=== PATIENT | female | born 1970 | race Caucasian/White ===

== ENCOUNTER 2018-10-25 20:32 | Emergency (ER) | payer OTHER, SELFPAY ==
[2018-10-25 20:37] VITALS: BP 114/66; PULSE 76; RESP 16; TEMP 36.4; O2SAT 98
[2018-10-25] MEDS: Lactated Ringers 1,000 ML 1000 ML IV (21:32)
--- NOTE | 2018-10-25 21:35 | ED.GENADUL_ITS ---
Discharge Plan Disposition Patient Disposition: HOME Discharge Details Chief Complaint: Abd Prob Clinical Impression: Right ureteral stone, Colon wall thickening Primary Care Provider: Adenike Higgins ED Provider: Fernando Doll Home Meds and New Rx's Prescriptions: Continue estradiol 1 MG tablet 1 mg PO DAILY RF: 0 famotidine 20 MG tablet 20 mg PO BID Qty: 60 RF: 0 trazodone 50 mg Tablet 50 mg PO DAILY RF: 0 topiramate 50 mg Tablet 50 mg PO DAILY RF: 0 duloxetine 30 mg Capsule,Delayed Release(Dr/Ec) 30 mg PO DAILY RF: 0 Discharge Instructions Instructions: Renal Colic (ED) Additional Instructions: PLease follow-up with your urologist if pain persists tomorrow. Please contact your primary care physician to arrange follow-up. Be sure to discuss CT finding of focus of wall thickening and enhancement of the distal colon. We may need additional outpatient diagnostic testing Return to the ER for any worsening or new concerning symptoms. Referrals: Adenike Higgins [Primary Care Provider] - Medical Decision Making 21:00 --48-year-old female with history of prior hysterectomy and renal stones, here with right lower quadrant pain and tenderness. Concern for acute surgical pathology including acute appendicitis versus obstructed renal stone. Plan for CT abdomen and pelvis. I offered pain medication and patient declined. Patient does appear clinically dehydrated - I will give IV fluid bolus. 22:42 --patient reassessed and is remained stable. Again offered analgesia and patient declined. CT reviewed and interpreted by radiology: 4 mm ureteral calculus near the right UVJ: Focus of wall thickening and enhancement of the distal colon which can be seen with colitis or pathology. I reviewed the CT findings with the patient and provided her a copy for her records. I encouraged her to follow-up with her primary care physician and specifically noted she may need additional diagnostic testing including colonoscopy which she has never had. Patient understands importance of timely follow-up. Disposition decision was made weighing the risks and benefits of hospitalization versus outpatient treatment, the risk for further decompensation , and the patient's wishes. The patient was stable and requested discharge. Prior to discharge, my usual and customary return precautions were reviewed with the patient - this included follow-up instructions and reason to return to the emergency department if condition worsens, does not improve as expected, or other new concerns arise. Imaging Data Radiologic Study: Imaging: CT Scan Radiologist's impression: IMPRESSION: 1. There is mild right-sided hydroureter with a 4 mm ureteral calculus near the right UVJ. There is mild enhancement of the uroepithelium of the right ureter which may be reactive but should be correlated with any concern for infection. 2. Heterogeneous stool-like contents in the stomach. This may be related to ingested products but should be correlated with any concern for gastroparesis. 3. Focus of wall thickening and enhancement in the distal colon which can be seen with colitis or pathology. 4. Mild intrahepatic ductal prominence. Correlation with lab values suggested. Urinary bladder wall prominence. This can be seen with infection or under distention. Findings suggestive of constipation. Other findings as above. Dictated and Authenticated by: Xochitl March MD. HPI General Mode of arrival: ambulatory . Date/Time Provider Initiated Documentation: 10/25/18 20:40 . Limitations to Documentation: no limitations . Information obtained by: patient . HPI Narrative: 48-year-old female prior history of renal stones presents with chief complaint of right lower quadrant pain. Patient notes pain started about an hour and a half prior to arrival. Pain is moderate to severe severe and currently rated 5/10. Pain is described as an ache but intermittently sharp. Pain does not radiate. No modifiers. She has no associated fevers, nausea vomiting, diarrhea, or urinary symptoms. Her current pain does not feel like prior kidney stones. Related Data Home Medications Medication Instructions Recorded Confirmed estradiol 1 mg PO DAILY 03/15/13 10/25/18 famotidine 20 mg PO BID #60 tab 08/03/15 duloxetine 30 mg PO DAILY 10/25/18 10/25/18 topiramate 50 mg PO DAILY 10/25/18 10/25/18 trazodone 50 mg PO DAILY 10/25/18 10/25/18 Previous Rx's Medication Instructions Recorded famotidine 20 mg PO BID #60 tab 08/03/15 Allergies Allergy/AdvReac Type Severity Reaction Status Date / Time Sulfa (Sulfonamide Allergy Anaphylaxsi Unverified 10/25/18 20:41 Antibiotics) s pain pills AdvReac they make Uncoded 10/25/18 20:41 me very sick unknown names General Stated Complaint: Abd Prob CRISTINA: 3 Review of Systems Review of Systems All systems reviewed & are unremarkable except as noted in HPI and below PFSH Renal stones (Chronic) H/O: hysterectomy (Chronic) Medical History Renal stones (Chronic) H/O: hysterectomy (Chronic) Social History Smoking/Tobacco Use Status: Never Social History Smoking/Tobacco Use Status: Never Exam Const General: cooperative and no acute distress HENMT Head: normocephalic and atraumatic Mouth: moist mucous membranes Eyes Conjunctivae: normal conjunctivae Sclera: normal sclerae Neck Neck: trachea midline and supple Resp Auscultation: clear to auscultation bilaterally, no rales, no rhonchi and no wheezes Cardio Jugular venous pressure: no JVD Rate: regular rate and not tachycardic Rhythm: regular rhythm GI Palpation: soft, not firm, no guarding, no masses, not rigid and tender in the RLQ and at McBurney's point; Shaver's sign negative, obturator sign negative, psoas sign negative, with no rebound tenderness and Rovsing's sign negative Auscultation: normal bowel sounds Skin General skin exam: no rashes or lesions noted Neuro General: alert, awake, oriented x3 and tone normal Extrem General: no edema Psych Appearance: grossly normal Mental Status: mental status grossly normal Speech and Movement: speech and movement normal Course Vital Signs Temperature 36.4 C L 10/25/18 20:37 Pulse 76 10/25/18 20:37 Respiratory Rate 16 10/25/18 20:37 Blood Pressure 114/66 10/25/18 20:37 Pulse Oximetry 98 10/25/18 20:37 Temperature 36.4 C L 10/25/18 20:37 Temperature Source Temporal Artery Scan 10/25/18 20:37 Pulse 76 10/25/18 20:37 Respiratory Rate 16 10/25/18 20:37 Respiratory Effort Non-Labored 10/25/18 20:40 Blood Pressure 114/66 10/25/18 20:37 Blood Pressure Position Supine 10/25/18 20:37 Pulse Oximetry 98 10/25/18 20:37 Oxygen Delivery Method Room Air 10/25/18 20:37 Oxygen Flow Rate 0 10/25/18 20:37 Pain Level 5 10/25/18 20:49
[2018-10-25 21:36] LABS: Abs Immature Grans 0.02 k/cumm (0.0-0.09); Absolute Basophil Count 0.04 k/cumm (0.0-0.2); Absolute Eosinophil Count 0.39 k/cumm (0.0-0.7); Absolute Lymphocyte Count 2.01 k/cumm (1.2-3.4); Absolute Monocyte Count 0.37 k/cumm (0.11-0.7); Absolute Neutrophil Count 5.19 k/cumm (1.2-6.7); Basophils % 0.5; Eosinophils % 4.9; HCT 39.1 % (36.0-46.0); HGB 13.2 g/dL (12.0-15.5); Immature Grans % 0.2; Lymphocytes % 25.1; Mean Corp. HGB Concentration 33.8 g/dL (32.0-36.0); Mean Corpuscular Hemoglobin 30.3 pg (27.0-33.0); Mean Corpuscular Volume 89.7 fL (80-95); Mean Platelet Volume 9.2 fL (8.0-11.0); Monocytes % 4.6; Neutrophils % 64.7; Platelet Count 287 x1000/uL (130-400); RBC 4.36 m/cumm (4.00-5.20); RBC Distribution Width 12.5 % (11.7-14.6); White Blood Cell Count 8.02 k/cumm (4.4-10.8)
[2018-10-25 21:43] LABS: Bilirubin Negative (Negative); Blood Moderate (Negative); Clarity Sl Cloudy; Glucose Negative (Negative); Ketones Negative (Negative); Leukocyte Esterase Negative (Negative); Nitrite Negative (Negative); Specific Gravity 1.025 (1.005-1.025); Urobilinogen 0.2 EU/dL (Up TO 0.2)
[2018-10-25] MEDS: Omnipaque 350 MG/ML 100 ML BTL IJ (21:52)
--- NOTE | 2018-10-25 21:53 | DI.CT_ITS ---
SYMPTOMS/DIAGNOSIS: RIGHT LOWER QUADRANT ABDOMINAL PAIN, TENDERNESS TO PALPATION CT OF THE ABDOMEN AND PELVIS: Comparison is made with July,. Images were performed from the lung bases through the ischial tuberosities after IV and without oral contrast. The lung bases are clear. The gallbladder is contracted. There is slight focal intrahepatic biliary dilatation seen superiorly in the right lobe of the liver. The stomach contains a large amount of food. There is no small bowel dilatation. There is an increased quantity of stool seen throughout the colon. No inflammatory changes are seen. There is mild right hydronephrosis. The ureter is dilated down to the ureterovesical junction where there is a stone measuring 4 mm. A nonobstructing stone is seen at the lower pole of the left kidney. There are a few tiny nonobstructing stones in the right kidney. The urinary bladder is nearly empty. The patient is status post hysterectomy. The aorta is normal in diameter. The lung bases are clear. The heart size is normal. IMPRESSION: A 4 mm stone at the right ureterovesical junction causing mild right hydronephrosis.
[2018-10-25 22:01] LABS: ALT 30 U/L (12-78); AST 25 U/L (15-37); Albumin 3.2 g/dL (3.4-5.0); Alkaline Phosphatase 77 U/L (46-116); Anion Gap 9.7 mmol/L (3-11); BUN 21 mg/dL (7-18); Bilirubin, Total 0.2 mg/dL (0.2-1.0); CO2 25.3 mmol/L (21.0-32.0); CREATININE 0.86 mg/dL (0.55-1.02); Chloride 110 mmol/L (98-107); Glucose 97 mg/dL (70-100); Potassium 3.7 mmol/L (3.5-5.1); Sodium 145 mmol/L (136-145); Total Protein 6.2 g/dL (6.4-8.2)
[2018-10-25 22:03] LABS: Bacteria Rare HPF (Negative); Crystals Few Calcium Oxalate HPF (Negative); Epithelial Cells Moderate HPF (Negative); Other Cells Rare Renal (Negative); RBC >50 (0-2)
[2018-10-25 22:04] LABS: C & S Indicated? No; Casts Negative LPF (Negative); Mucus Trace (Negative)
--- NOTE | 2018-10-25 22:31 | DI.VRAD_ITS ---
EXAM: CT Abdomen and Pelvis With Contrast EXAM DATE/TIME: 10/25/2018 9:06 PM CLINICAL HISTORY: 48 years old, female; Pain; Abdominal pain; Localized; Right lower quadrant (rlq); Patient HX: Rlq abd pain, ttp rlq TECHNIQUE: Axial computed tomography images of the abdomen and pelvis with intravenous contrast. All CT scans at this facility use at least one of these dose optimization techniques: automated exposure control; mA and/or kV adjustment per patient size (includes targeted exams where dose is matched to clinical indication); or iterative reconstruction. Coronal and sagittal reformatted images were created and reviewed. CONTRAST: 100 ml of omni 350 administered intravenously. COMPARISON: CT ABD PELVIS WITH CONTRAST 08/03/2015 12:24 AM FINDINGS: Lower thorax: Linear atelectasis or scarring at the lung bases. Gas in the distal esophagus which can be seen with reflux. ABDOMEN: Liver: Normal. No mass. Gallbladder and bile ducts: Mild intrahepatic ductal prominence. The gallbladder is contracted with no definite gallstones. Pancreas: Normal. No ductal dilation. Spleen: Spleen within normal limits. Adrenals: Adrenal glands normal. Kidneys and ureters: There are bilateral nonobstructive renal calculi. There is a too small to characterize hypodensity in the right kidney. There is mild right-sided hydroureter with a 4 mm ureteral calculus near the right UVJ, series 5 image 71. There is mild enhancement of the uroepithelium of the ureter which may be reactive but should be correlated with any concern for infection. Stomach and bowel: The stomach demonstrates heterogeneous stool-like contents which may be related to ingested products but should be correlated with any concern for gastroparesis. Evaluation of the bowel is limited secondary to the lack of oral contrast. No evidence of bowel obstruction. There is some wall thickening and enhancement in the distal colon on series 5 image 62 which should be correlated with any concern for colitis or pathology. Stool throughout the colon which can be seen with constipation. Appendix: Normal appendix. PELVIS: Bladder: There is urinary bladder wall prominence. This can be seen with infection or under distention. Reproductive: The uterus is not identified. No large adnexal masses. ABDOMEN and PELVIS: Intraperitoneal space: Normal. No free air. No significant fluid collection. Bones/joints: Skeletal degenerative changes. Soft tissues: Unremarkable. Vasculature: Normal. No abdominal aortic aneurysm. Lymph nodes: Normal. No enlarged lymph nodes. IMPRESSION: 1. There is mild right-sided hydroureter with a 4 mm ureteral calculus near the right UVJ. There is mild enhancement of the uroepithelium of the right ureter which may be reactive but should be correlated with any concern for infection. 2. Heterogeneous stool-like contents in the stomach. This may be related to ingested products but should be correlated with any concern for gastroparesis. 3. Focus of wall thickening and enhancement in the distal colon which can be seen with colitis or pathology. 4. Mild intrahepatic ductal prominence. Correlation with lab values suggested. Urinary bladder wall prominence. This can be seen with infection or under distention. Findings suggestive of constipation. Other findings as above. Dictated and Authenticated by: Xochitl March MD. Ordering:CÉSAR ALDRICH MD
[2018-10-25 22:45] VITALS: BP 117/65; PULSE 72; RESP 16; TEMP 36.7; O2SAT 98
== END 2018-10-25 22:52 | disposition home or self-care (01) ==
LOC: ER 22:57
PROVIDERS: Emergency Provider Student in an Organized Health Care Education/Training Program; PCP Internal Medicine
DX: N21.1 Calculus in urethra (principal); N13.4 Hydroureter; R93.3 Abnormal findings on diagnostic imaging of other parts of digestive tract; Z87.442 Personal history of urinary calculi
CPT/HCPCS: 36415; 80053; 96360; 99285; 74177; 81003; 81015; 85025; J3490

== ENCOUNTER 2019-07-01 09:00 | Emergency (ER) | payer OTHER, SELFPAY ==
[2019-07-01 09:03] VITALS: BP 122/82; PULSE 86; RESP 16; TEMP 36.8; O2SAT 98
--- NOTE | 2019-07-01 09:10 | W.ED.GENAD ---
Discharge Plan Disposition Patient Disposition: HOME Condition: Fair Discharge Details Chief Complaint: FlankPain Clinical Impression: Pyelonephritis Primary Care Provider: Adenike Higgins ED Provider: Belen Dorsey Home Meds and New Rx's Prescriptions: New ciprofloxacin HCl 500 mg tablet 500 mg PO BID Qty: 14 RF: 0 Continued estradiol 1 MG tablet 1 mg PO DAILY RF: 0 duloxetine 30 mg Capsule,Delayed Release(Dr/Ec) 30 mg PO BID RF: 0 sumatriptan succinate 50 mg Tablet 50 mg PO ONCE RF: 0 topiramate [Topamax] 25 mg Tablet 25 mg PO BID RF: 0 Discharge Instructions Instructions: Urinary Tract Infection in Women (ED) Additional Instructions: Encourage hydration. Tylenol as needed for discomfort. May continue with the Azo to help with symptomatic management. Please follow-up with primary within the next week for reevaluation. If you develop fevers/chills, vomiting, joint pain, inability to stay hydrated, increased pain or other new/worsening symptoms please seek care urgently once again. Referrals: Adenike Higgins [Primary Care Provider] - Discharge Data Discharge Date/Time-TO BE ENTERED AT DEPARTURE: 07/01/19 12:33 Medical Decision Making Patient is a 49-year-old female with history of pyelonephritis, nephrolithiasis presents today with chief complaint of left flank pain. She reports the pain began insidiously presently 1.5 weeks ago and has been aggressive and worsening. States she low-grade fever this is since resolved. Denies any GI upset. No change in urinary habits. She is tender in the left upper quadrant on exam. She denies any alcohol abuse. No history of pancreatitis. Patient is status post hysterectomy. Will give patient Toradol, hydration, obtain labs and obtain CT. Discussed CT with radiologist as my differential includes both nephrolithiasis and pancreatitis. He advised moving forward with contrast CT Labs are concerning for elevated white count of 10.95. Creatinine is normal. Patient is feeling improved after IV Toradol. spoke with Dr Lemos who advised CT concerning for pyelonephritis. Urinalysis is heavily contaminated. Will obtain repeat urinalysis. More strict guidelines on how to complete this was given. We will send the sample for culture. Spoke with Dr. Bennett regarding the antibiotics. Discussed recent use as well as the patients concominant use of duloxetine. He advised that short course would be safe to go forward with ciprofloxacin. Discussed this plan with the patient. Encourage hydration. She is given strict return precautions. I did contact her primary care provider. They will be in contact with her tomorrow as they obtained a urinalysis earlier this week with culture pending. They will ensure ciprofloxacin is the appropriate antibiotic and will arrange for prompt follow-up. All the patient's questions and concerns were addressed and she is in agreement with this plan. HPI General Mode of arrival: ambulatory. Date/Time Provider Initiated Documentation: 07/01/19 09:01. Limitations to Documentation: no limitations. Information obtained by: patient, family (accompanied by ) and RN notes reviewed. HPI Narrative: Patient is a 49-year-old female, accompanied by her significant other, with chief complaint of left flank pain. She reports the pain began approximately a week and a half and is progressively worsening. States that she had a low-grade temperature at home today, reports T-max of 99.4 ?F. Denies any nausea or vomiting. Denies any dysuria, increased frequency, increased urgency. No vaginal discharge. States that she has had kidney stones historically but this pain is not similar to that the pain radiates into the abdomen. Pain is worse with eating. Relieved by nothing. Denies any alcohol use, no smoking. Has not taken anything for the discomfort. Was seen by primary care 2 days ago, urinalysis was completed, patient still awaiting results. Patient also reports that last month she was treated for pyelonephritis. States his symptoms completely resolved after antibiotic course, believes she was treated with amoxicillin. Related Data Home Medications Medication Instructions Recorded Confirmed estradiol 1 mg PO DAILY 03/15/13 07/01/19 duloxetine 30 mg PO BID 10/25/18 07/01/19 ciprofloxacin HCl 500 mg PO BID #14 tab 07/01/19 sumatriptan succinate 50 mg PO ONCE 07/01/19 07/01/19 topiramate [Topamax] 25 mg PO BID 07/01/19 07/01/19 Previous Rx's Medication Instructions Recorded ciprofloxacin HCl 500 mg PO BID #14 tab 07/01/19 Allergies Allergy/AdvReac Type Severity Reaction Status Date / Time Sulfa (Sulfonamide Allergy Anaphylaxsi Unverified 07/01/19 09:23 Antibiotics) s pain pills AdvReac they make Uncoded 07/01/19 09:23 me very sick unknown names General Stated Complaint: FlankPain CRISTINA: 3 Review of Systems Constitutional Reports as per HPI, Denies chills, Denies fatigue, Denies fever(s) and Denies headache(s) ENT Denies headache(s) Cardiovascular Reports as per HPI, Denies chest pain and Denies dyspnea Respiratory Reports as per HPI, Denies cough and Denies dyspnea Gastrointestinal Reports as per HPI Genitourinary Reports as per HPI, Reports flank pain, Denies urinary incontinence, Denies urinary hesitancy, Denies urinary urgency, Denies vaginal discharge, Denies vaginal odor and Denies vaginal pruritus Musculoskeletal Reports as per HPI and Reports back pain Integumentary/Breasts Reports as per HPI and Denies rash Neurologic Reports as per HPI and Denies headache(s) Endocrine Denies fatigue [facility] Medical History H/O: hysterectomy (Chronic) Renal stones (Chronic) Social History Smoking/Tobacco Use Status: Never Alcohol Intake: never Drug use: Never Do you feel safe at home: Yes Do you feel safe in your relationship?: Yes Exam Const General: cooperative, healthy appearing, comfortable, no acute distress and well developed Nutritional Appearance: average body habitus and well nourished Orientation: alert and awake HENMT Head: normal to inspection Mouth: moist mucous membranes Resp Effort & Inspection: normal respiratory effort, able to speak in complete sentences and no respiratory distress Auscultation: clear to auscultation bilaterally, no rales, no rhonchi and no wheezes Cardio Rate: regular rate Rhythm: regular rhythm Heart Sounds: S1 normal and S2 normal GI Inspection: normal to inspection, no edema, non-distended and no obesity Palpation: soft, no hepatosplenomegaly, no guarding, no hernias and tender in the LUQ; with no rebound tenderness Percussion: normal to percussion Auscultation: normal bowel sounds Back/Spine/Pelvis Back: CVA tenderness (L) Skin General skin exam: no rashes or lesions noted Trauma: no lacerations or abrasions Neuro General: alert and awake Cognition: normal cognition Speech: speech normal Gait: normal gait Psych Appearance: grossly normal and well kempt Mental Status: mental status grossly normal Speech and Movement: speech and movement normal Course Vital Signs Temperature 36.8 C 07/01/19 09:03 Pulse 86 07/01/19 09:03 Respiratory Rate 16 07/01/19 09:03 Blood Pressure 122/82 07/01/19 09:03 Pulse Oximetry 98 07/01/19 09:03 Temperature 36.8 C 07/01/19 09:03 Temperature Source Skin 07/01/19 09:03 Pulse 86 07/01/19 09:03 Respiratory Rate 16 07/01/19 09:03 Blood Pressure 122/82 07/01/19 09:03 Blood Pressure Position Sitting 07/01/19 09:03 Pulse Oximetry 98 07/01/19 09:03 Oxygen Delivery Method Room Air 07/01/19 09:03 Oxygen Flow Rate 0 07/01/19 09:03 Pain Level 7 07/01/19 09:03
[2019-07-01 09:23] LABS: Clarity Clear (Clear)
--- NOTE | 2019-07-01 09:26 | DI.CT_ITS ---
SYMPTOM/DIAGNOSIS: LUQ AND LEFT FLANK PAIN ABDOMINAL AND PELVIC CT: 07/01 CT examination of the abdomen and pelvis was performed with a bolus infusion of 100 cc Omnipaque 350. Images obtained through the lung bases were unremarkable. Liver, spleen, pancreas, gallbladder and bile ducts were unremarkable. Abdominal aorta is of normal diameter and no major vascular abnormalities seen. No significant abdominal wall hernia seen. No abdominal or pelvic adenopathy seen. Appendix is normal. No evidence of diverticulitis or bowel obstruction. Adrenals appear normal bilaterally. There are numerous bilateral renal calculi. The largest left renal pelvic calcification measuring about 10 mm in diameter. Left kidney appears slightly larger than the right and there is mild left perinephric fat edema. These findings were not present on previous CT of 10/25/18 No hydronephrosis. The possibility of left pyelonephritis is raised. Please correlate clinically Urinary bladder unremarkable in appearance. No ureterolithiasis seen. CONCLUSION: Findings raising the possibility of left pyelonephritis. Multiple bilateral renal calculi noted without evidence of obstructive process.
[2019-07-01 09:43] LABS: Leukocyte Esterase Color Interference (Negative)
[2019-07-01 09:44] LABS: Bilirubin Color Interference (Negative); Blood Color Interference (Negative); Glucose Color Interference mg/dL (Negative); Ketones Color Interference mg/dL (Negative); Nitrite Color Interference (Negative); Urobilinogen Color Interference EU/dL (Up TO 0.2)
[2019-07-01 09:45] LABS: Bacteria Many HPF (Negative); C & S Indicated? No/Sq. Contamination; Casts Negative LPF (Negative); Crystals Negative HPF (Negative); Epithelial Cells Many HPF (Negative); Mucus Negative (Negative); WBC >50 HPF (0-5)
[2019-07-01] MEDS: Normal Saline 1,000 ML 1000 ML IV (09:56)
[2019-07-01] MEDS: Ketorolac 30 MG/ML VIAL IVP (09:57)
[2019-07-01 10:21] LABS: Abs Immature Grans 0.03 k/cumm (0.0-0.09); Absolute Basophil Count 0.02 k/cumm (0.0-0.2); Absolute Eosinophil Count 0.05 k/cumm (0.0-0.7); Absolute Lymphocyte Count 1.41 k/cumm (1.2-3.4); Absolute Monocyte Count 0.72 k/cumm (0.11-0.7); Basophils % 0.2; Eosinophils % 0.5; HGB 11.4 g/dL (12.0-15.5); Immature Grans % 0.3; Lymphocytes % 12.9; Mean Corp. HGB Concentration 32.6 g/dL (32.0-36.0); Mean Corpuscular Hemoglobin 30.2 pg (27.0-33.0); Mean Corpuscular Volume 92.6 fL (80-95); Mean Platelet Volume 9.4 fL (8.0-11.0); Monocytes % 6.6; Neutrophils % 79.5; Platelet Count 273 x1000/uL (130-400); RBC 3.78 m/cumm (4.00-5.20); RBC Distribution Width 12.3 % (11.7-14.6); White Blood Cell Count 10.95 k/cumm (4.4-10.8)
[2019-07-01 10:25] LABS: Absolute Neutrophil Count 8.71 k/cumm (1.2-6.7)
[2019-07-01 10:34] LABS: ALT 13 U/L (12-78); AST 15 U/L (15-37); Albumin 2.7 g/dL (3.4-5.0); Alkaline Phosphatase 74 U/L (46-116); BUN 19 mg/dL (7-18); Bilirubin, Total 0.3 mg/dL (0.2-1.0); CREATININE 0.76 mg/dL (0.55-1.02); Calcium 8.4 mg/dL (8.5-10.1); Chloride 108 mmol/L (98-107); Glucose 110 mg/dL (70-100); Lipase 81 U/L (73-393); Potassium 3.8 mmol/L (3.5-5.1); Sodium 139 mmol/L (136-145); Total Protein 6.5 g/dL (6.4-8.2)
[2019-07-01] MEDS: Omnipaque 350 MG/ML 100 ML BTL IJ (11:01)
[2019-07-01] MEDS: Ciprofloxacin 500 MG TAB PO (12:20)
[2019-07-01 12:21] VITALS: BP 106/67; PULSE 79; RESP 18; TEMP 36.8; O2SAT 98
[2019-07-01 12:31] VITALS: BP 106/67; PULSE 79; RESP 18; TEMP 36.8; O2SAT 98
== END 2019-07-01 12:33 | disposition home or self-care (01) ==
PROVIDERS: Emergency Provider Physician Assistant; PCP Internal Medicine
DX: N10 Acute pyelonephritis (principal)
CPT/HCPCS: 36415; 80053; 83690; 87077; 96361; 96374; 99285; 74177; 81003; 81015; 85025; 87086; 87186; 99284; J1885; J3490

== ENCOUNTER 2020-03-26 13:05 | Emergency (ER) | payer OTHER, SELFPAY ==
--- NOTE | 2020-03-26 13:08 | ED.GENADUL_ITS ---
Discharge Plan Disposition Patient Disposition: HOME Condition: Good Discharge Details Chief Complaint: DentalOral Clinical Impression: Dental infection Primary Care Provider: Adenike Higgins ED Provider: Belen Dorsey Home Meds and New Rx's Prescriptions: New penicillin V potassium 500 mg tablet 500 mg PO QID 7 Days Qty: 28 RF: 0 Continued estradiol 1 MG tablet 1 mg PO DAILY RF: 0 sumatriptan succinate 50 mg Tablet 50 mg PO ONCE RF: 0 topiramate [Topamax] 25 mg Tablet 25 mg PO BID RF: 0 Discharge Instructions Instructions: Dental Abscess (ED) Additional Instructions: Encourage water intake. Tylenol and/or ibuprofen as needed for discomfort. You may try topical options to help with discomfort such as Orajel. Please take the penicillin as prescribed. Even if symptoms improve, please take the entire course. You will need definitive care with a dentist. List of open dentist and list of local dentist are both attached. If you develop increased swelling, fever/chills or other new/worsening symptom please seek care urgently once again. Referrals: Adenike Higgins [Primary Care Provider] - Medical Decision Making Patient is a pleasant 49-year-old female presenting today with chief complaint of left lower dental pain. She reports that she has had increasing discomfort over the past 2 weeks. She denies any fevers or chills. Denies any headache. No radiating pain. He states that she has had multiple dental infections historically but does not believe that this area has been affected. Patient is status post hysterectomy. On exam, she appears nontoxic. She is noted to have an elevated blood pressure of 145/92 otherwise normal. She has poor dentition throughout. She does have multiple teeth that appear to have been extracted. The #19 tooth is maximal tenderness primarily along the buccal side. No lingual sided discomfort with palpation. No swelling or fluctuance. Mildly erythematous no area of discomfort. Exam the posterior oropharynx is without abnormality. No lymphadenopathy. No nuchal rigidity. No swelling under the tongue. We will begin the pain is patient on penicillin VK. She can return precautions. The list available dentist was given to the patient as well as local dentist. She will begin consulting with them tomorrow for definitive care. All of her questions or concerns were addressed and she is in agreement this plan. HPI General Mode of arrival: ambulatory . Date/Time Provider Initiated Documentation: 03/26/20 13:08 . Limitations to Documentation: no limitations . Information obtained by: patient and RN notes reviewed . History of Present Illness 49 year old F presents to the emergency department with the chief complaint of left lower dental pain, described as moderate, with intensity rated at 6. Quality is described as aching, and is localized to the mouth. Patient reports no radiation. Patient started experiencing this week(s) and it has been constant. No relieving factors improve symptom(s), No exacerbating factors reported . Patient notes no other symptoms.; denies cough, diaphoresis, fever/chills, headaches, nausea/vomiting, rash and shortness of breath. Patient did receive the following treatments prior to arrival, none Related Data Home Medications Medication Instructions Recorded Confirmed estradiol 1 mg PO DAILY 03/15/13 03/26/20 sumatriptan succinate 50 mg PO ONCE 07/01/19 07/01/19 topiramate [Topamax] 25 mg PO BID 07/01/19 03/26/20 penicillin V potassium 500 mg PO QID 7 Days #28 tab 03/26/20 Previous Rx's Medication Instructions Recorded penicillin V potassium 500 mg PO QID 7 Days #28 tab 03/26/20 Allergies Allergy/AdvReac Type Severity Reaction Status Date / Time Sulfa (Sulfonamide Allergy Anaphylaxsi Unverified 03/26/20 13:12 Antibiotics) s pain pills AdvReac they make Uncoded 03/26/20 13:12 me very sick unknown names General CRISTINA: 3 Review of Systems Constitutional Constitutional: Reports as per HPI, Denies chills, Denies fatigue, Denies fever(s), Denies headache(s) and Denies poor appetite Eyes Eyes: Denies change in vision and Denies irritation ENT Ears, Nose, Mouth, and Throat: Reports as per HPI, Reports dental pain, Denies dysphagia, Denies dizziness, Denies dry mouth, Denies ear discharge, Denies otalgia, Reports facial pain, Denies headache(s), Denies hoarseness, Denies lip swelling, Denies nasal congestion, Denies odynophagia and Denies sore throat Cardiovascular Cardiovascular: Reports as per HPI and Denies chest pain Respiratory Respiratory: Reports as per HPI and Denies cough Gastrointestinal Gastrointestinal: Reports as per HPI, Denies dysphagia, Denies nausea, Denies odynophagia and Denies vomiting Integumentary/Breasts Skin/Breast: Reports as per HPI, Denies erythema, Denies rash and Denies skin pain Neurologic Neurologic: Reports as per HPI, Denies dizziness and Denies headache(s) Endocrine Endocrine: Denies fatigue Allergic/Immunologic Allergic/Immunologic: Denies lip swelling PFSH Medical History Renal stones (Chronic) Surgical History H/O: hysterectomy (Chronic) Social History Smoking/Tobacco Use Status: Never Alcohol Intake: never Drug use: Never Substance use type: does not use Do you feel safe at home: Yes Do you feel safe in your relationship?: Yes Exam Const General: cooperative, healthy appearing, comfortable, no acute distress, well developed and well groomed Nutritional Appearance: average body habitus and well nourished Orientation: alert and awake [facility] Head: normal to inspection, normocephalic and atraumatic Ears: hearing grossly normal bilaterally, external ears normal and TM's normal bilaterally General nose exam: external nose normal and nares normal Face and sinus: normal facial exam, sinuses nontender and face symmetric Mouth: oral mucosae normal, lip normal, tongue normal, salivary ducts normal, moist mucous membranes, no audible dysphonia, No mouth trauma, no muffled voice and no trismus Teeth and gingiva: caries, poor dentition (pain along buccal side of #19 tooth, fx with crown, decaying area) and other (no swelling or fluctuance noted) Throat: posterior oropharynx normal, tonsils normal, uvula midline and no peritonsillar masses Eyes General: appearance normal, both eyes and all related structures Neck Neck: normal visual inspection, full ROM, no lymphadenopathy, supple and no anterior neck swelling Resp Effort & Inspection: normal respiratory effort, able to speak in complete sentences and no respiratory distress Auscultation: clear to auscultation bilaterally, no rales, no rhonchi and no wheezes Cardio Rate: regular rate Rhythm: regular rhythm Heart Sounds: S1 normal and S2 normal Skin General skin exam: no rashes or lesions noted Trauma: no lacerations or abrasions Neuro General: patient alert and patient awake Cognition: normal cognition Speech: speech normal Gait: normal gait Psych Appearance: grossly normal and well kempt Mental Status: mental status grossly normal Speech and Movement: speech and movement normal
[2020-03-26 13:09] VITALS: BP 145/92; PULSE 74; RESP 16; TEMP 37; O2SAT 98
== END 2020-03-26 13:20 | disposition home or self-care (01) ==
LOC: ER 19:38
PROVIDERS: Emergency Provider Physician Assistant; PCP Internal Medicine
DX: R68.84 Jaw pain (principal); K04.7 Periapical abscess without sinus; R03.0 Elevated blood-pressure reading, without diagnosis of hypertension
CPT/HCPCS: 99283